=== PATIENT | male | born 1980 | race Caucasian/White ===

== ENCOUNTER → 2020-04-15 18:32 | Outpatient (BNVA) | payer OTHER, SELFPAY | PROVIDERS: Family Provider Electrodiagnostic Medicine; PCP Electrodiagnostic Medicine; Visit Provider Nurse Practitioner Family | DX: Z11.59 Encounter for screening for other viral diseases (principal) | CPT/HCPCS: 87635 ==

== ENCOUNTER 2020-11-26 11:35 | Outpatient (CLI) | payer OTHER, SELFPAY ==
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
== END 2020-11-26 11:36 | disposition home or self-care (01) ==
LOC: RAD 11:44
PROVIDERS: PCP Electrodiagnostic Medicine; Visit Provider Electrodiagnostic Medicine
DX: M25.571 Pain in right ankle and joints of right foot
CPT/HCPCS: 73610

== ENCOUNTER → 2022-01-24 08:52 | Outpatient (BNVA) | payer BC, SELFPAY | PROVIDERS: PCP Family Medicine; Visit Provider Family Medicine | DX: Z51.81 Encounter for therapeutic drug level monitoring (principal); R53.81 Other malaise; R53.83 Other fatigue; M54.14 Radiculopathy, thoracic region; M54.12 Radiculopathy, cervical region | CPT/HCPCS: 80053; 84443; 85025 ==

== ENCOUNTER 2022-03-07 13:51 | Outpatient (CLI) | payer BC, SELFPAY ==
--- NOTE | 2022-03-07 14:08 | XR_ITS ---
WS: [id number] Cervical spine, 3 views, 03/07/2022 Clinical Data: Neck pain Comparison: None. Findings: No compression fractures are seen. The disc heights are normal. There is no prevertebral so ft tissue swelling. The odontoid is unremarkable. The soft tissues of the neck and the lung apices ar e normal. XR/XR cervical spine 3V* [id number] Impression: Negative cervical spine.
--- NOTE | 2022-03-07 14:08 | XR_ITS ---
WS: [id number] Thoracic spine, 3 views, 03/07/2022 Clinical Data: Back pain Comparison: None. Findings: No compression fractures are seen. The disc heights are normal. Mole osteoarthritic spurring is seen of all the lumbar vertebral bodies. The paravertebral regions are normal. XR/XR thoracic spine 3V* [id number] Impression: Mild osteoarthritis.
== END 2022-03-07 13:52 | disposition home or self-care (01) ==
LOC: RAD 13:54
PROVIDERS: PCP Family Medicine; Visit Provider Family Medicine
DX: M54.2 Cervicalgia (principal); M47.814 Spondylosis without myelopathy or radiculopathy, thoracic region
CPT/HCPCS: 72040; 72072

== ENCOUNTER 2022-08-08 14:56 | Outpatient (CLI) | payer BC, SELFPAY ==
--- NOTE | 2022-08-08 14:30 | MR_ITS ---
WS: [id number] MRI LUMBAR SPINE NONCONTRAST HISTORY: M51.16 - Intervertebral disc disorders with radiculopathy..., Progression of pain. COMPARISON: 2014 TECHNIQUE: Sagittal and axial multisequence imaging is submitted. Very slight straightening of the normal lumbar lordosis. 2 mm retrolisthesis of L2-L4. No fractures o r marrow edema. Very minimal disc desiccation. Conus terminates normally at L1-2 disc level. L1-L2: Mild annular disc bulging. No stenosis. L2-L3: Mild annular disc bulging with a shallow LEFT foraminal disc protrusion. Mild osteophytic ridg ing and facet arthritis. L3-L4: Mild annular disc bulging and facet arthritis. Moderate bilateral foraminal stenosis. L4-L5: Mild annular disc bulge with central disc protrusion. Associated annular fissure in the centra l protrusion. Mild facet joint arthritis. Mild central with bilateral subarticular recess and foramin al stenosis. L5-S1: Mild annular disc bulging. No stenosis. Paravertebral soft tissues are normal. MR/MR lumbar spine wo con* [id number] IMPRESSION: 1. Progression of degenerative spondylitic changes in the lumbar spine since . 2. New LEFT foraminal disc protrusion at L2-3 along with osteophyte with mild encroachment upon the LEFT exiting L2 nerve root. 3. Moderate bilateral foraminal stenosis at L3-4 due to diffuse disc, osteophy te and facet disease. 4. Small central disc protrusion at L4-5. Mild central, bilateral subarticular recess and foraminal stenosis.
== END 2022-08-08 14:57 | disposition home or self-care (01) ==
PROVIDERS: PCP Family Medicine; Visit Provider Anesthesiology Pain Medicine
DX: M51.16 Intervertebral disc disorders with radiculopathy, lumbar region (principal); M48.061 Spinal stenosis, lumbar region without neurogenic claudication
CPT/HCPCS: 72148

== ENCOUNTER 2023-01-26 15:50 | Emergency (ER) | payer BC, SELFPAY ==
[2023-01-26 16:31] VITALS: BP 133/83; PULSE 84; RESP 16; TEMP 36.5; O2SAT 94; BMI 24.4
--- NOTE | 2023-01-26 16:46 | CTR_ITS ---
PROCEDURE INFORMATION: Exam: CT Abdomen And Pelvis Without Contrast Exam date and time: 01/26/2023 5:07 PM Age: 42 years old Clinical indication: Abdominal pain; Flank; Left; Additional info: Flank pain TECHNIQUE: Imaging protocol: Computed tomography of the abdomen and pelvis without contrast. Axial, coronal and sagittal reformatted images were created and reviewed. Radiation optimization: All CT scans at this facility use at least one of these dose optimization techniques: automated exposure control; mA and/or kV adjustment per patient size (includes targeted exams where dose is matched to clinical indication); or iterative reconstruction. REPORTING DATA: Count of CT and Cardiac NM exams in prior 12 months: This patient has received 0 known CTs and 0 known cardiac nuclear medicine studies in the 12 months prior to the current study. COMPARISON: CR XR acute abdomen series [id number] 06/23/2018 10:09 AM RADIATION DOSE METRICS: Total DLP (mGy-cm): 504.56 FINDINGS: Lungs: Linear stranding and groundglass at the lung bases, likely due to atelectasis and/or scarring. Liver: Unremarkable. Gallbladder and bile ducts: No radiodense gallstones. No biliary ductal dilatation. Pancreas: Unremarkable. Spleen: Unremarkable. Adrenal glands: Normal. No mass. Kidneys and ureters: Mild left-sided hydroureteronephrosis and perinephric/periureteral stranding, secondary to a 5 mm mid left ureteral calculus (axial image 113 and coronal image 67). Nonobstructing bilateral renal calculi. Stomach and bowel: Scattered colonic diverticula without evidence of diverticulitis. No obstruction. No bowel wall thickening. No pneumatosis. Appendix: Normal. Intraperitoneal space: No free fluid. No organized fluid collection. No free air. Vasculature: Unremarkable. No aneurysm. Lymph nodes: No pathologically enlarged lymph nodes. Urinary bladder: Unremarkable as visualized. Reproductive: Unremarkable. Bones/joints: No acute osseous abnormality. Osteopenia. Degenerative changes. Soft tissues: Small, fat containing umbilical hernia. CT/CT kidney stone [id number] IMPRESSION: 1. Mild left-sided hydroureteronephrosis and perinephric/periureteral stranding, secondary to a 5 mm mid left ureteral calculus. 2. Additional findings, as above.
--- NOTE | 2023-01-26 17:00 | ED_ITS ---
HPI - Male Genitourinary General: Chief complaint: Urogenital-Male Stated complaint: came from urgent care, kidney stone not passed Time Seen by Provider: 01/26/23 16:43 Source: patient Mode of arrival: ambulatory History of Present Illness: 42-year-old male presents emergency room complaining of left flank pain that began 2 days ago. He was seen in with a local urgent care clinic states that he had a kidney stone started on 1 tamsulosin and Percocet. He has had nephrolithiasis in the past requiring lithotripsy. He has has noted some gross hematuria. No dysuria no frequency no fever. Onset (ago): day(s) Duration: constant and progressively worsening Location: left flank Radiation: left inguinal region Severity: severe Quality: sharp Relieving factors: none Exacerbating factors: none Associated symptoms: Deny discharge, dysuria, fevers/chills, hematuria, nausea, rash, swelling, urinary incontinence, urinary retention, mass or vomiting Review of Systems Const: Denies: fever(s), chills, body aches, change in appetite, fatigue or malaise ENMT: Denies: throat pain, ear or mastoid pain, nasal discharge or nasal congestion Card: Denies: chest pain, edema, dyspnea on exertion or orthopnea Resp: Denies: dyspnea, productive cough or non-productive cough GI: Denies: nausea or vomiting : Denies: dysuria, urinary incontinence or hematuria Skin/Breast: Denies: rash or pruritus PFS ED PFSH: Social History Smoking and tobacco status: never smoked Alcohol intake: never Substance/Drug Use: never Physical Exam Const: GENERAL APPEARANCE: cooperative and comfortable ORIENTATION/CONSCIOUSNESS: Yes awake, Yes oriented to person, Yes oriented to place and Yes oriented to time HENMT: COMMON NORMALS: normocephalic, atraumatic and hearing grossly normal bilaterally HEAD & SCALP: normocephalic and atraumatic Resp: COMMON NORMALS: normal respiratory effort, No retractions, No use of accessory muscles and clear to auscultation bilaterally AUSCULTATION: clear to auscultation bilaterally Cardio: COMMON NORMALS: regular rate, regular rhythm and No murmurs present (Cardio) RATE: regular rate RHYTHM: regular rhythm GI: COMMON NORMALS: Soft to palpation and No hepatosplenomegaly present AUSCULTATION: Yes normoactive bowel sounds PALPATION: Yes Soft to palpation, No Tenderness to palpation present (GI), No Guarding due to palpation present (GI) and Yes No hepatosplenomegaly present Extremity: COMMON NORMALS: normal to inspection, capillary refill normal, no clubbing, cyanosis or edema, no calf tenderness and no pedal edema Neuro: SENSORIUM/ORIENTATION: Yes oriented to person, Yes oriented to place and Yes oriented to time Skin: COMMON NORMALS: no rashes or lesions noted GENERAL SKIN EXAM: no rashes or lesions noted Course Vital Signs: Vital signs: Vital Signs Temperature 97.7 F 01/26/23 16:31 Pulse Rate 84 01/26/23 16:31 Respiratory Rate 16 01/26/23 17:19 Blood Pressure 133/83 01/26/23 16:31 Pulse Oximetry 94 01/26/23 16:31 Oxygen Delivery Me thod Room Air 01/26/23 16:31 MDM - Male Medical Decision Making 5 mm left ureterolithiasis. We will discharge patient home pain is well controlled at this time refer to urology strain urine he is already on tamsulosin 1 gave additional Percocet and antiemetics. If pain worsens or is uncontrollable return to the emergency room Medical Records I reviewed the patient's medical records. Lab Data I reviewed the patient's lab results. 01/26/23 16:54 01/26/23 16:54 Radiology Impressions Abdomen/Pelvis CT 01/26/23 16:46 IMPRESSION: 1. Mild left-sided hydroureteronephrosis and perinephric/periureteral stranding, secondary to a 5 mm mid left ureteral calculus. 2. Additional findings, as above. Laboratory Results WBC 11.6 10^3/uL (4.0-10.0) H 01/26/23 16:54 RBC 5.08 10^6/uL (4.1-5.3) 01/26/23 16:54 Hgb 15.0 g/dL (11.7-16.6) 01/26/23 16:54 Hct 45.2 % (42.0-52.0) 01/26/23 16:54 MCV 89.0 fl (80-94) 01/26/23 16:54 MCH 29.5 pg (28.0-34.0) 01/26/23 16:54 MCHC 33.2 g/dL (30.0-36.0) 01/26/23 16:54 RDW 12.4 % (12.1-15.1) 01/26/23 16:54 Plt Count 150 10^3/cmm (130-400) 01/26/23 16:54 MPV 11.6 fL (7.4-10.4) H 01/26/23 16:54 Neut % (Auto) 80.4 % 01/26/23 16:54 Lymph % (Auto) 10.0 % 01/26/23 16:54 [place] % (Auto) 7.6 % 01/26/23 16:54 Eos % (Auto) 1.2 % 01/26/23 16:54 Baso % (Auto) 0.3 % 01/26/23 16:54 Neut # (Auto) 9.32 10^3/uL (1.8-7.7) H 01/26/23 16:54 Lymph # (Auto) 1.2 10^3/uL (0.8-4.8) 01/26/23 16:54 [place] # (Auto) 0.9 10^3/uL (0.2-0.9) 01/26/23 16:54 Eos # (Auto) 0.1 10^3/uL (0.0-0.8) 01/26/23 16:54 Baso # (Auto) 0.0 10^3/uL (0.0-0.1) 01/26/23 16:54 Nucleated RBC % (auto) 0 % 01/26/23 16:54 Nucleated RBCs # 0.0 /100WBC 01/26/23 16:54 Sodium 144 mmol/L (136-145) 01/26/23 16:54 Potassium 4.0 mmol/L (3.5-5.1) 01/26/23 16:54 Chloride 102 mmol/L (98-107) 01/26/23 16:54 Carbon Dioxide 30 mmol/L (22-29) H 01/26/23 16:54 Anion Gap 16.0 (5-19) 01/26/23 16:54 BUN 24 mg/dL (6-20) H 01/26/23 16:54 Creatinine 1.7 mg/dL (0.7-1.2) H 01/26/23 16:54 GFR Calculation 44.2 mL/min (90-130) L 01/26/23 16:54 Glucose 96 mg/dL (65-115) 01/26/23 16:54 Calculated Osmolality 302 mOsm/kg (285-295) H 01/26/23 16:54 Calcium 9.5 mg/dL (8.5-10.5) 01/26/23 16:54 Total Bilirubin 0.4 mg/dL (0.15-1.2) 01/26/23 16:54 AST 13 U/L (0-40) 01/26/23 16:54 ALT 14 U/L (0-41) 01/26/23 16:54 Alkaline Phosphatase 66 U/L (40-130) 01/26/23 16:54 Total Protein 7.5 g/dL (6.6-8.7) 01/26/23 16:54 Albumin 4.8 g/dL (3.5-5.2) 01/26/23 16:54 Globulin 2.7 g/dL (1.3-4.6) 01/26/23 16:54 Urine Color Dark yellow (Yellow) 01/26/23 16:47 Urine Appearance Hazy (CLEAR) A 01/26/23 16:47 Urine pH 5 (5-7) 01/26/23 16:47 Ur Specific Alvo 1.030 (1.005-1.030) 01/26/23 16:47 Urine Protein Trace (Negative) 01/26/23 16:47 Urine Glucose (UA) Norm (Normal) 01/26/23 16:47 Urine Ketones Negative (Negative) 01/26/23 16:47 Urine Blood 3+ (Negative) H 01/26/23 16:47 Urine Nitrate Negative (Negative) 01/26/23 16:47 Urine Bilirubin Neg (Negative) 01/26/23 16:47 Urine Urobilinogen Norm mg/dL (Negative) 01/26/23 16:47 Ur Leukocyte Esterase Trace (Negative) H 01/26/23 16:47 Urine RBC >100 /hpf (0-2) H 01/26/23 16:47 Urine WBC 5-10 /hpf (0-5) H 01/26/23 16:47 Ur Squamous Epith Cells None /hpf (0-5) 01/26/23 16:47 Amorphous Sediment Not Reportable 01/26/23 16:47 Urine Bacteria 1+ /hpf (NONE) H 01/26/23 16:47 Discharge Plan Discharge Patient Disposition: Home Clinical Impression: Left nephrolithiasis Condition: Stable Prescriptions: New promethazine 25 mg tablet 25 mg PO Q6H PRN (Reason: nausea and vomiting) Qty: 20 0RF Percocet 5-325 mg tablet 1 tab PO Q4H PRN (Reason: pain) Qty: 20 0RF No Action mupirocin 2 % ointment 1 applic topical BID 7 Days Qty: 22 0RF ibuprofen 200 mg tablet 200 mg PO Q6H PRN acetaminophen [Tylenol] 325 mg capsule 325 mg PO QID PRN levofloxacin 500 mg tablet 500 mg PO DAILY Qty: 7 0RF prednisone 20 mg tablet 20 mg PO DAILY Qty: 7 0RF gabapentin 300 mg capsule 300 mg PO TID Qty: 90 6RF baclofen 10 mg tablet See Rx Instructions .ROUTE .COMPLEX Qty: 45 3RF Dose Instruction: TAKE ONE TABLET BY MOUTH THREE TIMES DAILY NEEDED FOR PAIN Rx Instructions: TAKE ONE TABLET BY MOUTH THREE TIMES DAILY NEEDED FOR PAIN quetiapine 200 mg tablet See Rx Instructions .ROUTE .COMPLEX Qty: 30 6RF Dose Instruction: TAKE ONE TABLET BY MOUTH DAILY Rx Instructions: TAKE ONE TABLET BY MOUTH DAILY gabapentin 600 mg tablet See Rx Instructions .ROUTE .COMPLEX Qty: 120 3RF Dose Instruction: TAKE 1 TABLET BY MOUTH FOUR TIMES DAILY DIRECTED Rx Instructions: TAKE 1 TABLET BY MOUTH FOUR TIMES DAILY DIRECTED prednisone 20 mg tablet 20 mg PO DAILY Qty: 5 0RF zolpidem 10 mg tablet 10 mg PO ONCE PRN (Reason: insomnia) Qty: 30 3RF Discharge Orders: Discharge ED (Routine); Ordered 01/26/23 Ordered By: Fransisco Contreras Referrals: Dirk Riley MD [Primary Care Provider] - Patient Instructions: Kidney Stones (ED), Opioid Safety, Pain Management Activity Restrictions/Additional Instructions: Strain urine to collect stone. Case management make arrangements. Follow-up with urology. If pain is uncontrolled return to the emergency room Coding Level of Care Code ED Turret Lathe Operator for Ana Mayers
[2023-01-26 17:06] LABS: Basophils % 0.3 %; Eosinophils # 0.1 10^3/uL (0.0-0.8); Eosinophils % 1.2 %; Hematocrit 45.2 % (42.0-52.0); Lymphocytes # 1.2 10^3/uL (0.8-4.8); Mean Corpuscular HGB Conc 33.2 g/dL (30.0-36.0); Mean Corpuscular Hemoglobin 29.5 pg (28.0-34.0); Mean Platelet Volume 11.6 fL (7.4-10.4); Monocytes # 0.9 10^3/uL (0.2-0.9); Monocytes % 7.6 %; Neutrophils # 9.32 10^3/uL (1.8-7.7); Neutrophils % 80.4 %; Nucleated Red Blood Cells % 0 %; Platelet Count 150 10^3/cmm (130-400); Red Blood Count 5.08 10^6/uL (4.1-5.3); Red Cell Distribution Width 12.4 % (12.1-15.1); White Blood Count 11.6 10^3/uL (4.0-10.0)
[2023-01-26 17:19] VITALS: RESP 16
[2023-01-26] MEDS: ondansetron 2 mg/ML SDV 2 mL 4 MG IVP (17:19)
[2023-01-26] MEDS: morphine 4 mg/mL SDV 1 mL IVP (17:19)
[2023-01-26] MEDS: lactated ringers 1,000 ML 999 ML IV (17:20)
[2023-01-26 17:23] LABS: Blood Urine 3+ (Negative); Glucose Urine UA Norm (Normal); Ketones Urine Negative (Negative); Protein Urine Trace (Negative); Urine Appearance Hazy (CLEAR); Urine Color Dark Yellow (Yellow); pH Urine 5 (5-7)
[2023-01-26 17:24] LABS: Add Urine Culture? Yes; Add Urine Microscopic? YES; Bacteria Urine 1+ /hpf; Bilirubin Urine Neg (Negative); Leukocyte Esterase Urine Trace (Negative); Nitrate Urine Negative (Negative); RBC Urine >100 /hpf (0-2); Urobilinogen Urine Norm (Negative)
[2023-01-26 17:33] LABS: Alanine Aminotransferase 14 U/L (0-41); Albumin Level 4.8 g/dL (3.5-5.2); Alkaline Phosphatase 66 U/L (40-130); Aspartate Amino Transferase 13 U/L (0-40); Blood Urea Nitrogen 24 mg/dL (6-20); Calcium 9.5 mg/dL (8.5-10.5); Carbon Dioxide 30 mmol/L (22-29); Chloride 102 mmol/L (98-107); Globulin 2.7 g/dL (1.3-4.6); Glomerular Filtration Rate 44.2 mL/min (90-130); Glucose 96 mg/dL (65-115); Osmolality Calculated 302 mOsm/kg (285-295); Sodium 144 mmol/L (136-145); Total Bilirubin 0.4 mg/dL (0.15-1.2); Total Protein 7.5 g/dL (6.6-8.7)
[2023-01-26] MEDS: morphine 4 mg/mL SDV 1 mL 6 MG IVP (18:42)
--- NOTE | 2023-01-27 12:16 | DCPLANNER ---
pmo manager had message to schedule a follow up appointment for patient with urology. pmo manager called phone number [phone] to confirm where patient would like referral sent. pmo manager unable to speak with patient at this time, a voicemail was left for patient to return family service caseworker phone call.
== END 2023-01-26 18:49 | disposition home or self-care (01) ==
PROVIDERS: Emergency Provider Family Medicine; PCP Family Medicine
DX: N13.2 Hydronephrosis with renal and ureteral calculous obstruction (principal)
CPT/HCPCS: 74176; 80053; 81001; 85025; 87086; 96361; 96374; 96375; 96376; 99285; J2270; J2405; J7120